=== PATIENT | male | born 1970 | race Caucasian/White ===

== ENCOUNTER → 2021-01-29 | Outpatient (CLI) | payer SELFPAY ==
[~2021-01-29] MED LIST: ACHD5005 PO; AMOX-355 PO; BUPR150T9 PO; DOCU-143 PO; FAMO20TA5 PO; HYDR-1231 PO; HYDR-3583 PO; IBUP-30 PO; ONDA-42 SL
== END ==
LOC: CARD 09:00
PROVIDERS: ATTEND Pediatrics
DX: I34.0 Nonrheumatic mitral (valve) insufficiency (principal); I51.7 Cardiomegaly
CPT/HCPCS: 93306

== ENCOUNTER → 2021-02-08 | Outpatient (CLI) | payer OTHER | LOC: LABNPT 09:04 | PROVIDERS: ATTEND Internal Medicine Cardiovascular Disease | DX: Z01.89 Encounter for other specified special examinations (principal); Z20.822 Contact with and (suspected) exposure to COVID-19 | CPT/HCPCS: 87635 ==

== ENCOUNTER → 2021-02-10 | Outpatient (CLI) | payer OTHER ==
[~2021-02-10] VITALS: Ht 177.8 cm; Wt 82.5 kg
[2021-02-10] VITALS (11 sets, daily range): BP systolic 117–145; BP diastolic 75–103
[~2021-02-10] MED LIST changes: +AMOX875T2 PO; +LIDOCAINE 2% VISCOUS 15 ML UDC ONE; +LIDOCAINE 2% VISCOUS 15 ML UDC PO ONE; +MIDAZOLAM 5 MG/5 ML (VERSED) VIAL IV ONE; +MIDAZOLAM 5 MG/5 ML (VERSED) VIAL ONE; +NS IV 1000 ML 1,000 ML IV SCH; +NS IV 1000 ML 1,000 ML ONE; +fentaNYL INJ 100 MCG/2 ML AMP IV ONE; +fentaNYL INJ 100 MCG/2 ML AMP ONE
[2021-02-10 11:58] LABS: HEMOGLOBIN 14.2 g/dL (13.3-17.7); MEAN PLATELET VOLUME 9.2 fL (9.0-12.2)
--- NOTE | 2021-02-10 12:10 | Diagnostic Imaging Report ---
INDICATION: Abnormal echocardiogram. Frontal chest obtained at 11:49 a.m. Heart and mediastinal silhouette are normal in appearance. The lungs are clear. There is no pneumothorax or pleural fluid. IMPRESSION: Negative chest. Dictated by: Dictated on workstation # [id number]
[2021-02-10 12:17] LABS: PROTHROMBIN TIME PATIENT 13.3 SEC (12.2-14.7)
[2021-02-10 12:27] LABS: ALANINE AMINOTRANSFERASE 18 U/L (0-55); ALBUMIN 4.1 GM/DL (3.2-4.5); ALKALINE PHOSPHATASE 61 U/L (40-136); BILIRUBIN,TOTAL 0.7 MG/DL (0.1-1.0); BUN/CREATININE RATIO 14; CALCIUM 9.1 MG/DL (8.5-10.1); CARBON DIOXIDE 20 MMOL/L (21-32); CHLORIDE 107 MMOL/L (98-107); CHOLESTEROL 141 MG/DL (< 200); GFR ESTIMATED > 60; GLUCOSE 96 MG/DL (70-105); HDL CHOLESTEROL 45 MG/DL (40-60); POTASSIUM 3.9 MMOL/L (3.6-5.0); SODIUM 140 MMOL/L (135-145); TOTAL PROTEIN 6.8 GM/DL (6.4-8.2); TRIGLYCERIDES 43 MG/DL (<150); VLDL CHOLESTEROL 9 MG/DL (5-40)
--- NOTE | 2021-02-10 14:02 | Conscious Sedation/ASA ---
Conscious Sedation Pre-Proced Time 14:02 ASA Score 3 For ASA 3 and 4: Consider anesthesia and medical clearance. Also, for patients with a history of failed moderate sedation consider anesthesia. Airway Lungs Heart ASA score ASA 1: a normal healthy patient ASA 2: a patient with a mild systemic disease (mid diabetes, controlled hypertension, obesity x ASA 3: a patient with a severe systemic disease that limits activity (angina, COPD, prior Myocardial infarction) ASA 4: a patient with an incapacitating disease that is a constant threat to life (CHF, renal failure) ASA 5: a moribund patient not expected to survive 24 hrs. (ruptured aneurysm) ASA 6: a declared brain- patient whose organs are being harvested. For emergent operations, add the letter E after the classification Mallampati Classification Grade 3 Sedation Plan Analgesia, Amnesia, Plan communicated to team members, Discussed options with patient/fam, Discussed risks with patient/fam The patient is an appropriate candidate to undergo the planned procedure, sedation, and anesthesia. The patient immediately re-assessed prior to indication. RADHA LLANOS MD Feb 10, 2021 2:02 pm
--- NOTE | 2021-02-10 14:03 | Discharge Inst-Post CATH ---
Discharge Inst-CATH/EP Problems Reviewed?: Yes Post Cardiac Cath/EP D/C Inst Follow Up/Plan Appointment with Dr. Archuleta's office in 2 to 4 weeks <b>CARDIAC CATH/EP PROCEDURE DISCHARGE INSTRUCTIONS</b> ACTIVITY * Go Home directly and rest. * Limit activity of the leg (or wrist if it was used) for 7 days including aer obics, swimming, jogging, bicycling, etc. * Restrict stair-climbing for 7 days if possible, if not, climb up with your non-cath leg, then bring together on the same step. * Avoid lifting, pushing, pulling or excessive movement of the affected extremi ty for 7 days. * Customary sexual activity may be resumed after 2 days-use caution not to use a position that strains or causes pain to the affected extremity. * No driving for 24 hours. * NO SMOKING. * Avoid straining for bowel movements for 7 days. * Gentle walking on level ground is allowed. * Returning to work will depend on the type of procedure and the results. Your doctor will discuss this with you. CALL YOUR DOCTOR FOR ANY OF THE FOLLOWING: *If bleeding from the puncture site occurs- Apply gentle pressure to site with clean cloth and call your doctor or EMS. * If a knot or lump forms under the skin, increases in size, or causes pain. * If bruising appears to be worsening or moving further down your leg instead of disappearing. * Temperature above 101 F. CARE OF YOUR GROIN INCISION; * Bruising or purple discoloration of the skin near the puncture site is common. * You may shower only, no bathtub bathing for 5 days. Be careful to avoid slipping as your leg may feel stiff. * If a closure device was used on your femoral artery, please see the attached guide regarding care of the device and your leg. * Leave dressing on FOR 24 hours. CARE OF YOUR WRIST INCISION; * Bruising or purple discoloration of the skin near the puncture site is common. * You may shower. * DO NOT submerge wrist. * Leave dressing on FOR 24 hours. RADHA ARCHULETA MD Feb 10, 2021 2:03 pm
== END ==
LOC: CATH 09:30
PROVIDERS: ATTEND Internal Medicine Cardiovascular Disease
DX: I34.0 Nonrheumatic mitral (valve) insufficiency (principal); R94.31 Abnormal electrocardiogram [ECG] [EKG]
CPT/HCPCS: 36415; 71045; 80053; 80061; 85027; 85610; 85730; 87040; 87077; 87081; 93312; 93351

== ENCOUNTER 2021-02-11 21:01 | Emergency (ER) | payer OTHER ==
[~2021-02-11] VITALS: Ht 178 cm; Wt 81.6 kg
[~2021-02-11 21:01] MED LIST changes: -AMOX875T2 PO; -LIDOCAINE 2% VISCOUS 15 ML UDC ONE; -LIDOCAINE 2% VISCOUS 15 ML UDC PO ONE; -MIDAZOLAM 5 MG/5 ML (VERSED) VIAL IV ONE; -MIDAZOLAM 5 MG/5 ML (VERSED) VIAL ONE; -NS IV 1000 ML 1,000 ML IV SCH; -NS IV 1000 ML 1,000 ML ONE; -fentaNYL INJ 100 MCG/2 ML AMP IV ONE; -fentaNYL INJ 100 MCG/2 ML AMP ONE
[2021-02-11] MEDS ORDERED: AMOX875T2 PO (21:39)
[2021-02-11 21:42] LABS: BASOPHILS % (AUTO) 0 % (0-10); EOSINOPHILS # (AUTO) 0.1 10^3/uL (0.0-0.3); EOSINOPHILS % (AUTO) 2 % (0-10); HEMATOCRIT 39 % (40-54); HEMOGLOBIN 13.4 g/dL (13.3-17.7); LYMPHOCYTES # (AUTO) 2.5 10^3/uL (1.0-4.0); LYMPHOCYTES % (AUTO) 33 % (12-44); MEAN CORPUSCULAR HEMOGLOBIN 32 pg (25-34); MEAN CORPUSCULAR HGB CONC 34 g/dL (32-36); MEAN CORPUSCULAR VOLUME 93 fL (80-99); MEAN PLATELET VOLUME 9.1 fL (9.0-12.2); MONOCYTES # (AUTO) 0.6 10^3/uL (0.0-1.0); MONOCYTES % (AUTO) 8 % (0-12); NEUTROPHILS # (AUTO) 4.4 10^3/uL (1.8-7.8); NEUTROPHILS % (AUTO) 57 % (42-75); PLATELET COUNT 222 10^3/uL (130-400); WHITE BLOOD COUNT 7.8 10^3/uL (4.3-11.0)
[2021-02-11 22:00] LABS: BILIRUBIN,URINE NEGATIVE (NEGATIVE); CLARITY,URINE CLEAR; COLOR,URINE YELLOW; GLUCOSE, URINE (UA) NEGATIVE (NEGATIVE); KETONES,URINE NEGATIVE (NEGATIVE); LEUKOCYTE ESTERASE ,URINE NEGATIVE (NEGATIVE); NITRITE,URINE NEGATIVE (NEGATIVE); PH,URINE 5.5 (5-9); PROTEIN,URINE NEGATIVE (NEGATIVE)
--- NOTE | 2021-02-11 22:05 | Diagnostic Imaging Report ---
INDICATION: Chest pain, mitral valvular vegetations. COMPARISON: 02/10/2021 FINDINGS: The heart size and its configuration is normal. There is no failure pattern. No edema, pneumonia, effusion or pneumothorax. IMPRESSION: Stable normal frontal chest x-ray. Dictated by: Dictated on workstation # [id number]
[2021-02-11 22:06] LABS: ERYTHROCYTE SEDIMENTATION RATE 7 MM/HR (0-15)
[2021-02-11 22:08] LABS: ALANINE AMINOTRANSFERASE 14 U/L (0-55); ALKALINE PHOSPHATASE 68 U/L (40-136); BILIRUBIN,TOTAL 0.4 MG/DL (0.1-1.0); BUN/CREATININE RATIO 15; CALCIUM 8.9 MG/DL (8.5-10.1); CARBON DIOXIDE 25 MMOL/L (21-32); CHLORIDE 105 MMOL/L (98-107); CREATININE SERUM 1.11 MG/DL (0.60-1.30); GFR ESTIMATED > 60; GLUCOSE 86 MG/DL (70-105); POTASSIUM 3.7 MMOL/L (3.6-5.0); SODIUM 139 MMOL/L (135-145); TOTAL PROTEIN 6.7 GM/DL (6.4-8.2)
--- NOTE | 2021-02-11 22:15 | ED Cardiac General ---
History of Present Illness General Chief Complaint: Cardiac/General Problems Stated Complaint: ABNORMAL LAB RESULTS/INFECTION IN BLOOD Nursing Triage Note: told to come to [facility] by dr llanos for "blood infection" seen 02/09/21 for stress echo Source: patient History of Present Illness Date Seen by Provider: Feb 11, 2021 Time Seen by Provider: 21:25 Initial Comments PT ARRIVES VIA POV FROM HOME PT WAS RECENTLY DISCOVERED TO HAVE A HEART MURMUR, ON ROUTINE VISIT TO [facility] ( STATES HE WENT THERE TO GET REFERRED FOR SCREENING COLONOSCOPY, HE HAS NEVER HAD ONE, AND IS ALMOST 52 YEARS OLD ) PT HAD NO PRIOR DIAGNOSIS OF HEART MURMUR OR ANY CARDIAC PROBLEMS PT HAD REGULAR ECHOCARDIOGRAM ON 01/29/21, ORDERED BY CHIEF CLERK AT [facility]--SHOWED SEVERE MITRAL REGURGITATION, WITH ABNORMAL MITRAL VALVE LEAFLET AND HEALED VEGETATION VS RUPTURED CHORDAE WITH PROLAPSE. EF 55-65% PT WAS REFERRED TO DR. LLANOS PT WAS SEEN BY DR. LLANOS LAST WEEK AND HAD STRESS ECHOCARDIOGRAM YESTERDAY 02/10/21, WHICH SHOWED SEVERE MITRAL REGURGITATION AND ABNORMAL POSTERIOR LEAFLET OF MITRAL VALVE WITH PROBABLE HEALED VEGETATION PT STATES DR. LLANOS IS IN PROCESS OF REFERRING HIM TO FOR VALVE REPLACEMENT ( "PIG VALVE" PER PT ) PT ALSO HAD OUTPATIENT LAB DONE WELL, AND STATES THAT HE WAS CONTACTED TODAY BY DR. LLANOS'S OFFICE AND WAS TOLD TO COME HERE BECAUSE HE HAD "INFECTION IN HIS BLOOD" ( REVIEW OF OUTPATIENT LAB SHOWED WBC OF 7.0 ) PT IS COMPLETELY ASYMPTOMATIC PT STATES HE WORKS OUT ON [employer] AND WAS ON HIS WAY TO THE GYM [employer], WHEN HE GOT THE MESSAGE FROM DR. LLANOS'S OFFICE. PT DENIES ANY DECREASE IN EXERCISE TOLERANCE, NO CHEST PAIN OR INCREASED DYSPNEA OR FATIGUE WITH EXERCISE. PT DENIES ANY RECENT ILLNESS NO FEVER/SWEATS/CHILLS OR NIGHT SWEATS NO CHEST PAIN NO PALPITATIONS NO DIZZINESS OR SYNCOPE NO NAUSEA/VOMITING NO SWELLING IN LEGS/ FEET OR PAIN IN CALVES PT DENIES ANY HISTORY OF DRUG USE, AND SPECIFICALLY DENIES ANY HISTORY OF IV DRUG USE--STATES HE TAKES HYDROXYCUT PILLS WHEN HE EXERCISES. PT DENIES ANY HISTORY OF SMOKING CIGARETTES, BUT DOES SMOKE MARIJUANA PT DENIES ANY HISTORY OF ALCOHOL USE. PCP: [facility] UNIT OPERATOR: DR. LLANOS Allergies and Home Medications Allergies Coded Allergies: No Known Drug Allergies (Unverified , 09/26/16) Patient Home Medication List Home Medication List Reviewed: Yes Review of Systems Review of Systems Constitutional: no symptoms reported; No chills, No diaphoresis, No dizziness, No fever, No malaise, No weakness EENTM: No Symptoms Reported Respiratory: No Symptoms Reported; Denies Orthopnea, Denies Shortness of Air Cardiovascular: No Symptoms Reported; Denies Chest Pain, Denies Edema, Denies Irregular Heart Rate, Denies Lightheadedness, Denies Palpitations, Denies Syncope Gastrointestinal: No Symptoms Reported Genitourinary: No Symptoms Reported Musculoskeletal: no symptoms reported Skin: no symptoms reported Psychiatric/Neurological: No Symptoms Reported Endocrine: No Symptoms Reported Hematologic/Lymphatic: No Symptoms Reported Past Vwxifft-Wbxaje-Jdtgje Hx Past Med/Social Hx: Reviewed and Corrections made Patient Social History Alcohol Use: Denies Use Drug of Choice: THC Smoking Status: Never a Smoker 2nd Hand Smoke Exposure: No Recent Infectious Disease Expo: No Recent Hopitalizations: No Substance type: Marijuana Immunizations Up To Date Tetanus Booster (TDap): More than 5yrs Date of Influenza Vaccine: Sep 19, 2016 Seasonal Allergies Seasonal Allergies: Yes Past Medical History Surgeries: Yes (UMBILICAL HERNIA; LEFT INGUINAL HERNIA REPAIR) Abdominal Respiratory: No Cardiac: Yes (MURMUR DX 01/2021--SEVERE MITRAL REGURG. WITH VEGETATIONS) Heart Murmur Neurological: No Reproductive Disorders: No Sexually Transmitted Disease: No HIV/AIDS: No Genitourinary: No Gastrointestinal: Yes (UMBILICAL AND LEFT INGUINAL HERNIA REPAIRS) Abdominal Hernia Musculoskeletal: No Endocrine: No HEENT: No Loss of Vision: Denies Hearing Impairment: Denies Cancer: No Psychosocial: Yes Depression Integumentary: No (EXTENSIVE TATTOOS) Blood Disorders: No Adverse Reaction/Blood Tranf: No (N/A) Family Medical History PAST SURGICAL HISTORY: -INCARCERATED PERIUMBILCAL HERNIA REPAIR 07/05/[address] HARPER -LEFT INGUINAL HERNIA REPAIR WITH [facility] 09/29/[address] DYSON Physical Exam Vital Signs Vital Signs - First Documented 02/11/21 21:16 Temp 37.0 Pulse 80 Resp 16 B/P (MAP) 117/72 (87) Pulse Ox 96 O2 Delivery Room Air Capillary Refill : Less Than 3 Seconds Height, Weight, BMI Height: 5'10.00" Weight: 175lbs. 5.0oz. 79.429173pm; 25.00 BMI Method:Stated General Appearance: No Apparent Distress, WD/WN, Other (DOES NOT APPEAR ILL OR TO BE IN ANY DISCOMFORT OR DISTRESS) HEENT: PERRL/EOMI Neck: Full Range of Motion, Normal Inspection, Non Tender, Supple; No Carotid Bruit, No JVD Respiratory: Chest Non Tender, Normal Breath Sounds, No Accessory Muscle Use, No Respiratory Distress Cardiovascular: Regular Rate, Rhythm, No Edema, No JVD, Normal Peripheral Pulses, Systolic Murmur (5/6) Gastrointestinal: Non Tender, Soft Extremity: Normal Inspection, Other (NO SPLINTER HEMORRHAGES NOTED) Neurologic/Psychiatric: Alert, Oriented x3, No Motor/Sensory Deficits, Normal Mood/Affect, wharf helper II-XII Norm as Tested Skin: Normal Color, Warm/Dry, Tattoos/Piercings (EXTENSIVE TATTOOS) Focused Exam Lactate Level 02/11/21 21:30: Lactic Acid Level 1.71 Lactic Acid Level Laboratory Tests Test 02/11/21 21:30 Lactic Acid Level 1.71 MMOL/L (0.50-2.00) Progress/Results/Core Measures Results/Orders Lab Results Laboratory Tests Test 02/11/21 21:30 02/11/21 21:55 02/11/21 22:02 Range/Units White Blood Count 7.8 4.3-11.0 10^3/uL Red Blood Count 4.26 L 4.30-5.52 10^6/uL Hemoglobin 13.4 13.3-17.7 g/dL Hematocrit 39 L 40-54 % Mean Corpuscular Volume 93 80-99 fL Mean Corpuscular Hemoglobin 32 25-34 pg Mean Corpuscular Hemoglobin Concent 34 32-36 g/dL Red Cell Distribution Width 11.7 10.0-14.5 % Platelet Count 222 130-400 10^3/uL Mean Platelet Volume 9.1 9.0-12.2 fL Immature Granulocyte % (Auto) 0 % Neutrophils (%) (Auto) 57 42-75 % Lymphocytes (%) (Auto) 33 12-44 % Monocytes (%) (Auto) 8 0-12 % Eosinophils (%) (Auto) 2 0-10 % Basophils (%) (Auto) 0 0-10 % Neutrophils # (Auto) 4.4 1.8-7.8 10^3/uL Lymphocytes # (Auto) 2.5 1.0-4.0 10^3/uL Monocytes # (Auto) 0.6 0.0-1.0 10^3/uL Eosinophils # (Auto) 0.1 0.0-0.3 10^3/uL Basophils # (Auto) 0.0 0.0-0.1 10^3/uL Immature Granulocyte # (Auto) 0.0 0.0-0.1 10^3/uL Erythrocyte Sedimentation Rate 7 0-15 MM/HR Sodium Level 139 135-145 MMOL/L Potassium Level 3.7 3.6-5.0 MMOL/L Chloride Level 105 98-107 MMOL/L Carbon Dioxide Level 25 21-32 MMOL/L Anion Gap 9 5-14 MMOL/L Blood Urea Nitrogen 17 7-18 MG/DL Creatinine 1.11 0.60-1.30 MG/DL Estimat Glomerular Filtration Rate > 60 BUN/Creatinine Ratio 15 Glucose Level 86 70-105 MG/DL Lactic Acid Level 1.71 0.50-2.00 MMOL/L Calcium Level 8.9 8.5-10.1 MG/DL Corrected Calcium 8.9 8.5-10.1 MG/DL Total Bilirubin 0.4 0.1-1.0 MG/DL Aspartate Amino Transf (AST/SGOT) 16 5-34 U/L Alanine Aminotransferase (ALT/SGPT) 14 0-55 U/L Alkaline Phosphatase 68 40-136 U/L C-Reactive Protein High Sensitivity 0.04 0.00-0.50 MG/DL B-Type Natriuretic Peptide 32.9 <100.0 PG/ML Total Protein 6.7 6.4-8.2 GM/DL Albumin 4.0 3.2-4.5 GM/DL Urine Color YELLOW Urine Clarity CLEAR Urine pH 5.5 5-9 Urine Specific [place] >=1.030 1.016-1.022 Urine Protein NEGATIVE NEGATIVE Urine Glucose (UA) NEGATIVE NEGATIVE Urine Ketones NEGATIVE NEGATIVE Urine Nitrite NEGATIVE NEGATIVE Urine Bilirubin NEGATIVE NEGATIVE Urine Urobilinogen 0.2 < = 1.0 MG/DL Urine Leukocyte Esterase NEGATIVE NEGATIVE Urine RBC (Auto) NEGATIVE NEGATIVE Urine RBC NONE /HPF Urine WBC NONE /HPF Urine Crystals PRESENT H /LPF Urine Amorphous Sediment RARE DAVINA URATES H /LPF Urine Bacteria NEGATIVE /HPF Urine Casts NONE /LPF Urine Mucus SMALL H /LPF Urine Culture Indicated NO Urine Opiates Screen NEGATIVE NEGATIVE Urine Oxycodone Screen NEGATIVE NEGATIVE Urine Methadone Screen NEGATIVE NEGATIVE Urine Propoxyphene Screen NEGATIVE NEGATIVE Urine Barbiturates Screen NEGATIVE NEGATIVE Ur Tricyclic Antidepressants Screen NEGATIVE NEGATIVE Urine Phencyclidine Screen NEGATIVE NEGATIVE Urine Amphetamines Screen NEGATIVE NEGATIVE Urine Methamphetamines Screen NEGATIVE NEGATIVE Urine Benzodiazepines Screen NEGATIVE NEGATIVE Urine Cocaine Screen NEGATIVE NEGATIVE Urine Cannabinoids Screen POSITIVE H NEGATIVE Coronavirus 2019 ([facility]) Not Detected Not Detecte My Orders Orders - INDIO GARCIA DO Ekg Tracing (02/11/21 22:26) Monitor-Rhythm Ecg Trace Only (02/11/21 22:26) Drug Screen Stat (Urine) (02/11/21 22:26) Ondansetron Injection (Zofran Injectio (02/11/21 23:30) Vital Signs/I&O 02/11/21 02/11/21 21:16 23:56 Temp 37.0 Pulse 80 68 Resp 16 14 B/P (MAP) 117/72 (87) 123/66 Pulse Ox 96 96 O2 Delivery Room Air Room Air Blood Pressure Mean: 87 Progress Progress Note : Progress Note COMPLETELY ASYMPTOMATIC DURING ER STAY PT RESTED QUIETLY FOR ENTIRE STAY. Initial ECG Impression Date: Feb 11, 2021 Initial ECG Impression Time: 22:36 Initial ECG Rate: 63 Initial ECG Rhythm: Normal Sinus (LVH) Initial ECG Impression: 1st Degree AV Block Initial ECG Comparisson: No Previous ECG Available Diagnostic Imaging Comments CXR--PER RADIOLOGIST REPORT AT 2214 FINDINGS: The heart size and its configuration is normal. There is no failure pattern. No edema, pneumonia, effusion or pneumothorax. IMPRESSION: Stable normal frontal chest x-ray. Reviewed: Reviewed by Me Departure Communication (Admissions) 2217--CALLED [facility], THEY WILL CALL ME BACK. 231--[facility] CALLED BACK AND UPDATED STATUS. HAVE DISCUSSED WITH HOSPITALIST AND CARDIOLOGY AND WAITING FOR INFECTIOUS DISEASE TO CALL BACK. THEY ARE CURRENTLY AT [facility] AND ARE CURRENTLY BOARDING 21 PATIENTS IN THEIR ER WITH OVER 70 PEOPLE IN WAITING ROOM, WITH WAIT TIMES OF OVER 12 HOURS TO BE SEEN. THEY ADVISE THAT IT WILL BE SOMETIME TOMORROW BEFORE PT CAN BE TRANSFERRED, PENDING DISMISSALS FROM THEIR FACILITY. 5--SPOKE WITH DR. SILVA, UNIT OPERATOR, HE IS AGREEABLE TO KEEPING PT HERE AND GIVING IV ANTIBIOTICS UNTIL A BED IS AVAILABLE AT . 2335--PT STATES NOW THAT HE WOULD LIKE TO LEAVE AND JUST DRIVE HIMSELF TO , HE IS CONCERNED ABOUT COST OF TRANSFER. LENGTHY DISCUSSION WITH PT ABOUT RISKS OF DOING THIS AND BENEFITS OF STAYING HERE SO HE CAN RECEIVE IV ANTIBIOTICS AND BE MONITORED, UNTIL BED IS AVAILABLE. ALSO DISCUSSED THE CURRENT SITUATION AT , WITH EXTENSIVE WAIT TIMES, AND DELAY IN HIS RECEIVING IV ANTIBIOTICS, AND HE STATES HE IS WILLING TO WAIT IN THEIR ER. 2344--[facility] CALLED BACK AND PT HAS BEEN ACCEPTED BY DR. BURNETT, AND ADVISE TRIPLE ANTIBIOTIC THERAPY OF VANCOMYCIN, ZOSYN AND GENTAMICIN. I INFORMED [facility] OF PT'S PLAN TO LEAVE AMA AND DRIVE UP THERE HIMSELF. WILL CONTACT THEM IF PT CHANGES HIS MIND AND DECIDES TO STAY HERE SUGGESTED BY ALL. DISCUSSED THIS AGAIN WITH PT AND HE CONTINUES TO WANT TO DRIVE HIMSELF TO [facility]. AGAIN DISCUSSED RISKS OF LEAVING AND BENEFITS OF STAYING HERE, AND HE CONTINUES TO DECLINE, STATING HE IS CONCERNED ABOUT THE COST. ADVISED THAT HE WOULD BE APPLY TO APPLY FOR FINANCIAL ASSISTANCE HERE, BUT DECLINES THIS OPTION. PT IS VERY PLEASANT AND OTHERWISE COOPERATIVE, AND IS RESPECTFUL AND DOES NOT APPEAR ANGRY OR UPSET IN ANY WAY. REPEATEDLY STATES HE IS CONCERNED ABOUT COST, HIS REASON FOR WANTING TO LEAVE AND DRIVE TO ON HIS OWN. AMA PAPERS SIGNED. Impression Primary Impression: Endocarditis Additional Impression: NEW DIAGNOSIS OF SEVERE MITRAL REGURGITATION AND MURMUR Disposition: 07 AGAINST MEDICAL ADVICE Condition: Against Medical Advice Departure-Patient Inst. Referrals: NO,LOCAL PHYSICIAN (PCP/Family) Primary Care Physician INDIO GARCIA DO Feb 11, 2021 22:15
[2021-02-11 22:22] LABS: AMORPHOUS SEDIMENT,UR RARE AMOR URATES /LPF; BACTERIA,URINE NEGATIVE /HPF
[2021-02-11 22:42] LABS: AMPHETAMINE SCREEN, URINE NEGATIVE (NEGATIVE); BARBITURATE SCREEN URINE NEGATIVE (NEGATIVE); BENZODIAZEPINES SCREEN URINE NEGATIVE (NEGATIVE); CANNABINOID SCREEN, URINE POSITIVE (NEGATIVE); COCAINE SCREEN URINE NEGATIVE (NEGATIVE); METHADONE STAT NEGATIVE (NEGATIVE); METHAMPHETAMINE SCREEN URINE S NEGATIVE (NEGATIVE); OPIATE SCREEN URINE NEGATIVE (NEGATIVE); OXYCODONE STAT NEGATIVE (NEGATIVE); PROPOXYPHENE STAT NEGATIVE (NEGATIVE); TRICYCLIC ANTIDEPRESSANTS SCRE NEGATIVE (NEGATIVE)
[2021-02-11] MEDS ORDERED: ONDANSETRON 4 MG/2 ML (SDV) Z0FRAN IVP ONE (23:30)
[2021-02-11 23:56] VITALS: BP 123/66
== END 2021-02-11 23:56 | disposition left against medical advice (07) ==
LOC: EDUNIT# 21:01 → ER 21:03
DX: I38 Endocarditis, valve unspecified (principal); I05.1 Rheumatic mitral insufficiency; Z20.822 Contact with and (suspected) exposure to COVID-19
CPT/HCPCS: 71045; 80053; 80306; 81000; 83605; 83880; 85025; 85652; 86141; 87040; 93005; 93041; 99284; U0002; 36415; 87635

== ENCOUNTER 2021-03-31 15:09 | Outpatient (CLI) | payer OTHER ==
[~2021-03-31] VITALS: Ht 178 cm; Wt 81.6 kg
[~2021-03-31 15:09] MED LIST changes: +AMOX875T2 PO
[2021-03-31 15:20] VITALS: BP 106/74
== END 2021-03-31 15:44 | disposition home or self-care (01) ==
LOC: SDC 15:09
PROVIDERS: ATTEND Internal Medicine Infectious Disease
DX: I34.8 Other nonrheumatic mitral valve disorders (principal); Z79.2 Long term (current) use of antibiotics
CPT/HCPCS: 99211

== ENCOUNTER 2021-05-03 09:29 | Outpatient (RCR) | payer OTHER | END 2021-07-08 | disposition home or self-care (01) | LOC: CR 09:29 | DX: Z09 Encounter for follow-up examination after completed treatment for conditions other than malignant neoplasm (principal); Z95.2 Presence of prosthetic heart valve | CPT/HCPCS: 93798 ==

== ENCOUNTER → 2022-10-25 | Outpatient (CLI) | payer OTHER | LOC: CARD 10:30 | PROVIDERS: ATTEND Internal Medicine Cardiovascular Disease | DX: I51.7 Cardiomegaly (principal); Z95.2 Presence of prosthetic heart valve | CPT/HCPCS: 93306 ==